=== PATIENT | female | born 1985 | race Two or more races ===

== ENCOUNTER 2018-01-16 10:27 | Day surgery (SDC) | payer MEDICARE ==
[2018-01-15 13:04] VITALS: BMI 58.7
[~2018-01-16 10:27] MED LIST: Lidocaine 1% PF 5 ML VIAL ONE; PROPOFOL 200 MG/20 ML VIAL ONE
[2018-01-16] MEDS ORDERED: Midazolam HCl 2 mg/2 ml Vial ONE (12:26)
--- NOTE | 2018-01-16 13:28 | OP ---
DATE OF PROCEDURE: 01/16/2018 PROCEDURE: Esophagogastroduodenoscopy with biopsy and esophageal dilation over a guidewire. PREOPERATIVE DIAGNOSES: Dysphagia and gastroesophageal reflux disease. OPERATIVE NOTE: Informed consent was obtained from the patient. She was sedated with total intraven ous anesthesia. The bite block was placed and the endoscope was advanced easily to the second portio n of the duodenum and retroflexion was performed in the stomach. The esophagus was normal. The GE j unction was normal. Random biopsies were taken from the distal and proximal esophagus to rule out eo sinophilic esophagitis. An 18 mm Savary dilator was passed over a wire and a second look endoscopy s hows no change of the esophagus after dilation. The stomach was normal except for streaky erythemato us gastritis in the antrum. Biopsies were obtained to rule out H. pylori. The pylorus and first and second portions of the duodenum were normal. IMPRESSION: 1. Mild antral erythematous gastritis, biopsied to rule out Helicobacter pylori. 2. Normal esophagus, dilated to 18 mm with a Savary dilator and biopsied. 3. Otherwise normal esophagogastroduodenoscopy. RECOMMENDATIONS: 1. Pantoprazole 40 mg daily. 2. Await histopathology. 3. Follow up in GI clinic in 1 month.
== END 2018-01-16 13:48 | disposition home or self-care (01) ==
LOC: SDC 10:27
PROVIDERS: ATTEND Internal Medicine Gastroenterology
PROC: 0D758ZZ Dilation of Esophagus, Via Natural or Artificial Opening Endoscopic (ICD-10-PCS; principal; 2018-01-16)
PROC: 0DB38ZX Excision of Lower Esophagus, Via Natural or Artificial Opening Endoscopic, Diagnostic (ICD-10-PCS; 2018-01-16)
PROC: 0DB78ZX Excision of Stomach, Pylorus, Via Natural or Artificial Opening Endoscopic, Diagnostic (ICD-10-PCS; 2018-01-16)
PROC: 0DB18ZX Excision of Upper Esophagus, Via Natural or Artificial Opening Endoscopic, Diagnostic (ICD-10-PCS; 2018-01-16)
DX: K21.9 Gastro-esophageal reflux disease without esophagitis (principal); K29.70 Gastritis, unspecified, without bleeding; R13.10 Dysphagia, unspecified; E11.9 Type 2 diabetes mellitus without complications; Z79.84 Long term (current) use of oral hypoglycemic drugs; Z79.899 Other long term (current) drug therapy; Z91.040 Latex allergy status; Z90.49 Acquired absence of other specified parts of digestive tract
CPT/HCPCS: 88305; 88312; 88313; J2250